=== PATIENT | male | born 2000 | race Two or more races ===

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

== ENCOUNTER 2019-11-21 11:20 | Emergency (ER) | payer BC, OTHER ==
[2019-11-21] MEDS ORDERED: ORPHENADRINE 30 MG/ML 2 ML VIAL IM STA (12:06)
[2019-11-21] MEDS ORDERED: KETOROLAC 60 MG/2 ML VIAL IM STA (12:06)
[2019-11-21] MEDS ORDERED: methylPREDNISolone SOD SUCCI 125 MG/2 ML VIAL IM ONE (12:06)
--- NOTE | 2019-11-21 12:24 | ED ---
Neck Injury/Pain HPI - General Source: RN notes reviewed, old records reviewed Mode of arrival: ambulatory Limitations: no limitations <Nasreen Kelly - Last Filed: 11/21/19 20:21> <Cristine Ambrosio - Last Filed: 11/22/19 01:06> - General Chief Complaint: Neck Pain/Injury Stated Complaint: neck pain Time Seen by Provider: 11/21/19 11:45 - History of Present Illness Initial Comments: Patient is a 19-year-old male who presents emergency department today with chief complaint of pain on the right side of the neck and pain with turning his head after stretching and today. Patient reports that he also has some pain with swallowing since that time. He states that he has not taking anything for pain. He reports that he has no major medical history. Denies any lightheadedness. He does feel that his face is getting warm. Patient reports that he hasn't no nausea or vomiting. (Nasreen Kelly) - Related Data Home Medications Medication Instructions Recorded Confirmed Cetirizine HCl [Zyrtec] 10 mg PO DAILY 06/11/16 06/11/16 Previous Rx's Medication Instructions Recorded Cephalexin [Keflex] 500 mg PO Q8HR #21 cap 06/11/16 Azithromycin [Zithromax Z-pack] 250 mg PO DIRECTED #6 tab 11/21/19 Cyclobenzaprine [Flexeril] 10 mg PO TID #9 tab 11/21/19 Ibuprofen [Motrin] 600 mg PO Q8HR PRN #20 tab 11/21/19 methylPREDNISolone Dose Pack 4 mg PO DIRECTED #21 package 11/21/19 [Medrol Dose Pack] Allergies Allergy/AdvReac Type Severity Reaction Status Date / Time divalproex sodium Allergy Unknown Verified 11/21/19 11:34 [From Depakote] Review of Systems ROS Other: All systems not noted in ROS Statement are negative. <Nasreen Kelly - Last Filed: 11/21/19 20:21> ROS Other: All systems not noted in ROS Statement are negative. <Cristine Ambrosio - Last Filed: 11/22/19 01:06> ROS Statement: Those systems with pertinent positive or pertinent negative responses have been documented in the HPI. Past Medical History Additional Past Medical History / Comment(s): seasonal allergies History of Any Multi-Drug Resistant Organisms: None Reported Additional Past Surgical History / Comment(s): circumcision 04/2016 Past Psychological History: No Psychological Hx Reported Smoking Status: Never smoker Past Alcohol Use History: Occasional Past Drug Use History: None Reported <TatumNasreen castrejon - Last Filed: 11/21/19 20:21> General Exam Limitations: no limitations General appearance: alert, in no apparent distress Head exam: Present: atraumatic, normocephalic, normal inspection Eye exam: Present: normal appearance, PERRL, EOMI. Absent: scleral icterus, conjunctival injection, periorbital swelling ENT exam: Present: normal exam, mucous membranes moist, TM's normal bilaterally, other (minimal uvula swelling and erythema. No deviation. No tongue swelling. ) Neck exam: Present: normal inspection, other (Pain with turning head to the right. keeping neck straight. No rash or erythema. No Bruit. ). Absent: tenderness, meningismus, lymphadenopathy Respiratory exam: Present: normal lung sounds bilaterally. Absent: respiratory distress, wheezes, rales, rhonchi, stridor Cardiovascular Exam: Present: regular rate, normal rhythm, normal heart sounds. Absent: systolic murmur, diastolic murmur, rubs, gallop, clicks GI/Abdominal exam: Present: soft, normal bowel sounds. Absent: distended, tenderness, guarding, rebound, rigid Extremities exam: Present: normal inspection, full ROM, normal capillary refill. Absent: tenderness, pedal edema, joint swelling, calf tenderness Back exam: Present: normal inspection Psychiatric exam: Present: normal affect, normal mood <RobinNasreen - Last Filed: 11/21/19 20:21> - General Exam Comments Initial Comments: Alert and oriented 19-year-old male. (RobinNasreen) Course Vital Signs 11/21/19 11/21/19 11:34 13:53 Temperature 98.5 F 98.0 F Pulse Rate 60 70 Respiratory 16 17 Rate Blood Pressure 140/79 134/74 O2 Sat by Pulse 98 98 Oximetry Medical Decision Making - Radiology Data Radiology results: report reviewed (Normal soft tissue neck xray. ) <Nasreen Kelly - Last Filed: 11/21/19 20:21> <Cristine Ambrosio - Last Filed: 11/22/19 01:06> - Medical Decision Making Patient is a 19-year-old male since her insurance today with complaints of neck pain and pain with range of motion after stretching his neck this morning. He reports he is unable to turn the neck to the left. Patient states that he has pain with walking up and down. He woke up this morning without any issues until he stretched his neck. He states he now has some trouble swallowing. He has no fevers or chills at this time. He has minimal pharyngeal and uvula swelling and erythema. Patient soft tissue neck xray is negative for acute process. Patient has no uvula deviation. Neck xray shows some straightening of cervical curve consistent with muscle spasm. Patient was reevualtated after medication and is having better ROM of the neck. Discussed follow up with PCP and treatment with steroid, muscle relaxer and azithromycin for minimal uvulitis. (Nasreen Kelly) I was available for consultation in the emergency department. The history and physical exam were done by the midlevel provider. I was consulted for this patients care. I reviewed the case with the midlevel provider and based on their presentation of the patient, I agree with the assessment, medical decision making and plan of care as documented. Chart was dictated using Mind[employer] dictation software. Attempts were made to correct any dictation errors however some typographical errors may persist. Patient was seen during a national state of emergency due to the Covid-19 pandemic. (rCistine Ambrosio) Disposition Is patient prescribed a controlled substance at d/c from ED?: No Time of Disposition: 13:37 <Nasreen Kelly - Last Filed: 11/21/19 20:21> <Cristine Ambrosio - Last Filed: 11/22/19 01:06> Clinical Impression: Neck muscle spasm, Pharyngitis Disposition: HOME SELF-CARE Condition: Good Instructions (If sedation given, give patient instructions): Cervical Strain (ED), Pharyngitis (ED) Additional Instructions: Please use medication as discussed. Please follow up with family doctor if symptoms have not improved over the next two days. Please return to the emergency room if your symptoms increase or worsen or for any other concerns. Prescriptions: Cyclobenzaprine [Flexeril] 10 mg PO TID #9 tab methylPREDNISolone Dose Pack [Medrol Dose Pack] 4 mg PO DIRECTED #21 package Ibuprofen [Motrin] 600 mg PO Q8HR PRN #20 tab PRN Reason: Pain Azithromycin [Zithromax Z-pack] 250 mg PO DIRECTED #6 tab Referrals: Pascual Allen DO [Primary Care Provider] - 1-2 days
--- NOTE | 2019-11-21 12:32 | XR ---
EXAMINATION TYPE: XR soft tissue neck , 2 VIEWS DATE OF EXAM ORDERED: 11/21/2019 HISTORY: pain with swallowing. COMPARISON: None. FINDINGS: Paraspinal soft tissues are normal. The epiglottis is normal. The airway appears widely pa tent. IMPRESSION: NO ACUTE SOFT TISSUE ABNORMALITY.
[2019-11-21 13:55] VITALS: BP 134/74; PULSE 70; RESP 17; TEMP 98
== END 2019-11-21 13:54 | disposition home or self-care (01) ==
LOC: EC 11:20
DX: M62.838 Other muscle spasm (principal); J02.9 Acute pharyngitis, unspecified; J30.2 Other seasonal allergic rhinitis; Z79.899 Other long term (current) drug therapy; Z88.8 Allergy status to other drugs, medicaments and biological substances
CPT/HCPCS: 70360; 99284; 96372 ×3; J2360; J2930; J1885

== ENCOUNTER 2020-10-01 16:44 | Emergency (ER) | payer OTHER ==
[2020-10-01 16:49] VITALS: BP 134/76; PULSE 94; RESP 17; TEMP 98.1
[2020-10-01] MEDS ORDERED: CEPHALEXIN 500MG STARTER PACK 4 CAP BTL PO STA (17:43)
--- NOTE | 2020-10-01 17:53 | ED ---
General Adult HPI - General Chief complaint: Skin/Abscess/Foreign Body Stated complaint: Infection on arm Time Seen by Provider: 10/01/20 16:52 Source: patient Mode of arrival: ambulatory Limitations: no limitations - History of Present Illness Initial comments: 20-year-old male presents to the emergency room for a chief complaint of rash. Patient states he has a rash to the left forearm. Patient states he was doing yard work and got a thorn in his left arm. States that since that time his rash is also in his chest and left side of his face. Patient states it was initially itchy. States it is weeping. Patient states he is concerned it could be getting infected.Patient has no other complaints at this time including shortness of breath, chest pain, abdominal pain, nausea or vomiting, headache, or visual changes. - Related Data Home Medications Medication Instructions Recorded Confirmed Cetirizine HCl [Zyrtec] 10 mg PO DAILY 06/11/16 06/11/16 Previous Rx's Medication Instructions Recorded Cephalexin [Keflex] 500 mg PO Q8HR #21 cap 06/11/16 Azithromycin [Zithromax Z-pack (6 250 mg PO DIRECTED #6 tab 11/21/19 tabs)] Cyclobenzaprine [Flexeril] 10 mg PO TID #9 tab 11/21/19 Ibuprofen [Motrin] 600 mg PO Q8HR PRN #20 tab 11/21/19 methylPREDNISolone Dose Pack 4 mg PO DIRECTED #21 package 11/21/19 [Medrol Dose Pack] Cephalexin [Keflex] 500 mg PO Q6HR 7 Days #28 cap 10/01/20 Allergies Allergy/AdvReac Type Severity Reaction Status Date / Time No Known Allergies Allergy Verified 10/01/20 16:48 Review of Systems ROS Statement: Those systems with pertinent positive or pertinent negative responses have been documented in the HPI. ROS Other: All systems not noted in ROS Statement are negative. Past Medical History Past Medical History: No Reported History Additional Past Medical History / Comment(s): seasonal allergies History of Any Multi-Drug Resistant Organisms: None Reported Additional Past Surgical History / Comment(s): circumcision 04/2016 Past Psychological History: No Psychological Hx Reported Smoking Status: Never smoker Past Alcohol Use History: Occasional Past Drug Use History: None Reported General Exam Limitations: no limitations Course Vital Signs 10/01/20 16:45 Temperature 98.1 F Pulse Rate 94 Respiratory 17 Rate Blood Pressure 134/76 O2 Sat by Pulse 99 Oximetry Medical Decision Making - Medical Decision Making Patient likely has contact dermatitis giving he does have an erythematous patch on his left arm with weeping noted. This does not appear to be cellulitic however patient is concerned for infection. Patient will be treated with Keflex to prevent any early infection. He will continue to do calamine lotion. He will return for any worsening symptoms. Patient also evaluated by Dr. Mcgowan Disposition Clinical Impression: Rash, Contact dermatitis Disposition: HOME SELF-CARE Condition: Good Instructions (If sedation given, give patient instructions): Contact Dermatitis (ED) Additional Instructions: Please continue calamine lotion. Take antibiotics as directed. Follow up with your doctor. Return to the emergency room for any worsening symptoms. Prescriptions: Cephalexin [Keflex] 500 mg PO Q6HR 7 Days #28 cap Is patient prescribed a controlled substance at d/c from ED?: No Referrals: Pascual Allen DO [Primary Care Provider] - 1-2 days Time of Disposition: 17:52
== END 2020-10-01 18:16 | disposition home or self-care (01) ==
LOC: EC 16:44
DX: L25.9 Unspecified contact dermatitis, unspecified cause (principal); Z79.1 Long term (current) use of non-steroidal anti-inflammatories (NSAID)
CPT/HCPCS: 99282